=== PATIENT | male | born 1975 | race Caucasian/White ===

== ENCOUNTER 2017-09-02 17:28 | Emergency (ER) | payer OTHER ==
[2017-09-02] MEDS ORDERED: IBUPROFEN 400 MG TABLET (FP) PO ONE (18:02)
--- NOTE | 2017-09-02 18:02 | PDOC ---
Rapid Medical Evaluation Time Seen by Provider: 09/02/17 18:00 Medical Evaluation: Allergies Allergy/AdvReac Type Severity Reaction Status Date / Time No Known Allergies Allergy Verified 05/14/14 12:09 09/02/17 18:00 I have performed a brief in-person evaluation of this patient. The patient presents with a chief complaint of: urinary freg and dysuria x 4 days. No urethral discharge, flank pain, n/v. Also reports vague JASSO Pertinent physical exam findings:Stable and well calixto w/ benign abd I have ordered the following:ua/cx/std The patient will proceed to the ED for further evaluation. 09/02/17 18:03
[2017-09-02 18:05] VITALS: BP 131/82; PULSE 81; TEMP 97.7; BMI 28.3
[2017-09-02 18:28] LABS: URINE APPEARANCE CLEAR; URINE BILIRUBIN NEGATIVE (NEGATIVE); URINE BLOOD 2+ (NEGATIVE); URINE COLOR COLORLESS; URINE GLUCOSE (UA) NEGATIVE (NEGATIVE); URINE KETONE NEGATIVE (NEGATIVE); URINE NITRITE NEGATIVE (NEGATIVE); URINE PROTEIN NEGATIVE (NEGATIVE); URINE UROBILINOGEN NEGATIVE mg/dL (0.2-1.0)
[2017-09-02 18:32] LABS: URINE LEUK ESTERASE 3+ (NEGATIVE)
[2017-09-02] MEDS ORDERED: AZITHROMYCIN 1 GM PACKET PO ONE (19:35)
--- NOTE | 2017-09-02 19:35 | PDOC ---
History of Present Illness - General Chief Complaint: Urinary Problem Stated Complaint: FATIGUE Time Seen by Provider: 09/02/17 18:00 History Source: Patient Exam Limitations: Language Barrier ([employer]#[id number]) - History of Present Illness Travel History: No Initial Comments: 09/02/17 19:56 This is a 42-year-old male with past medical history of pancreatitis presents emergency Department with 3 days of dysuria, urinary frequency, urinary urgency. Patient states he has had one sexual partner for the past 18 years and last week had unprotected anal and vaginal intercourse. Patient denies any other sexual partners over this time. PMD: None PMH: Pancreatitis PSH: Denies Past History - Past Medical History Allergies/Adverse Reactions: Allergies Allergy/AdvReac Type Severity Reaction Status Date / Time No Known Allergies Allergy Verified 09/02/17 18:00 Home Medications: Ambulatory Orders NK [No Known Home Medication] 09/02/17 COPD: No DVT: No - Immunization History Immunization Up to Date: Yes - Suicide/Smoking/Psychosocial Hx Smoking Status: No Smoking History: Never smoked Number of Cigarettes Smoked Daily: 0 Information on smoking cessation initiated: No Hx Alcohol Use: No Drug/Substance Use Hx: No Substance Use Type: None Review of Systems - Review of Systems Able to Perform ROS?: Yes Is the patient limited Danish proficient: Yes Constitutional: No: Symptoms Reported HEENTM: No: Symptoms Reported Respiratory: No: Symptoms reported Cardiac (ROS): No: Symptoms Reported ABD/GI: No: Symptoms Reported : Yes: See HPI Musculoskeletal: No: Symptoms Reported Integumentary: No: Symptoms Reported Neurological: No: Symptoms reported *Physical Exam - Vital Signs Last Vital Signs Temp Pulse Resp BP Pulse Ox 97.7 F 81 17 131/82 100 09/02/17 18:01 09/02/17 18:01 09/02/17 18:01 09/02/17 18:01 09/02/17 18:01 - Physical Exam General Appearance: Yes: Appropriately Dressed. No: Apparent Distress HEENT: positive: Pharynx Normal Respiratory/Chest: positive: Lungs Clear, Normal Breath Sounds, Accessory Muscle Use. negative: Respiratory Distress Cardiovascular: positive: Regular Rhythm, Regular Rate, S1, S2. negative: Murmur Male Genitalia: positive: discharge. negative: testicular tenderness, testicular mass, epididymus tender, CVAT Musculoskeletal: positive: Normal Inspection. negative: CVA Tenderness Extremity: positive: Normal Inspection, Normal Range of Motion Integumentary: positive: Normal Color, Dry, Warm Neurologic: positive: Fully Oriented, Alert, Normal Mood/Affect, Normal Response , Motor Strength 12/05 ED Treatment Course - ADDITIONAL ORDERS Additional order review: Laboratory Results 09/02/17 18:20 Urine Color Colorless Urine Appearance Clear Urine pH 7.0 D Ur Specific [place] 1.004 Urine Protein Negative Urine Glucose (UA) Negative Urine Ketones Negative Urine Blood 2+ H Urine Nitrite Negative Urine Bilirubin Negative Urine Urobilinogen Negative Ur Leukocyte Esterase 3+ H Urine WBC (Auto) 105 Urine RBC (Auto) None - Medications Given in the ED: ED Medications Discontinued Medications Generic Name Dose Route Start Last Admin Trade Name Roberta PRN Reason Stop Dose Admin Ibuprofen 800 mg 09/02/17 18:02 09/02/17 18:16 Motrin - PO 09/02/17 18:03 800 mg ONCE ONE Administration Medical Decision Making - Medical Decision Making 09/02/17 20:02 A/P: 42-year-old male with urinary symptoms for 4 days. No CVA tenderness. Uncircumcised male with thick white discharge from urinary meatus. Testicles without masses, nontender, no erythema noted. Urinalysis done in rapid medical evaluation reveals pyuria and +3 leukoesterase. GC cultures pending Given the patient has no ALLERGIES I will treat with 250 mg ceftriaxone IM and 1 g of oral Zithromax now. Discharge *DC/Admit/Observation/Transfer Diagnosis at time of Disposition: Acute urogenital gonorrhea - Discharge Dispostion Disposition: HOME Condition at time of disposition: Stable Admit: No - Referrals - Patient Instructions Additional Instructions: You have been treated for gonorrhea and chlamydia today. Always use condoms all having intercourse unless you're trying to make a baby. You should your partner you have been treated for sexual transmitted infection and they should be seen and evaluated for sexual transmitted infections. Return to emergency department for worsening pain, pain in the testicles, nausea , vomiting or any other concerns. Thank you very much for choosing to provide your emergent healthcare needs. - Post Discharge Activity
[2017-09-02] MEDS ORDERED: AZITHROMYCIN 500 MG TABLET ONE (19:46)
--- NOTE | 2017-09-05 07:16 | PDOC ---
Patient Follow-up (Call Back) - Post ED Follow - Up Condition at time of discharge: Stable Disposition at time of original discharge: HOME Reason for Call Back: Abnwl. Microbiology (Urine culture shows lactose fermenting negative bacilli 60-70,000 CFU per mL. Patient was treated for STDs while in the ER on September 02 with ceftriaxone and azithromycin. Results were negative. Will await final culture report)
== END 2017-09-02 20:11 | disposition home or self-care (01) ==
LOC: JERFT 17:28
DX: A54.89 Other gonococcal infections (principal)
CPT/HCPCS: 36415; 81003; 81015; 87086; 87186; 87491; 87591; 99281-25